=== PATIENT | female | born 1945 | race Caucasian/White ===

== ENCOUNTER 2017-11-13 11:33 | Observation (INO) | payer MEDICARE, BC ==
--- NOTE | 2017-11-13 13:01 | EDM.PDOC ---
ED HPI GENERAL MEDICAL PROBLEM - General Stated Complaint: FROM [facility] HEART PROBLEMS Time Seen by Provider: 11/13/17 12:53 Source of Information: Reports: Patient, Family, RN Notes Reviewed History Limitations: Reports: No Limitations - History of Present Illness INITIAL COMMENTS - FREE TEXT/NARRATIVE: 72-year-old female presents to the emergency department day complaint of shortness of breath, she states she's been short of breath for about a week has progressively gotten worse she does produce green sputum, she is a DNR/DNI comfort care only does have an extensive cardiac history I did discuss the case with her daughter informed me that cardiology had nothing more to offer other than comfort care. She has been having chest pain on and off for the last week as well as fever did receive a flu shot this year - Related Data Allergies Allergy/AdvReac Type Severity Reaction Status Date / Time No Known Allergies Allergy Verified 11/13/17 13:19 Home Meds: Home Meds Aspirin 81 mg PO DAILY 11/13/17 [History] Carbidopa/Levodopa [Carbidopa-Levodopa 10-100] 1 tab PO BID 11/13/17 [History] Cholecalciferol (Vitamin D3) [Vitamin D3] 2,000 unit PO DAILY 11/13/17 [History] Clopidogrel [Plavix] 75 mg PO DAILY 11/13/17 [History] Famotidine 20 mg PO BID 11/13/17 [History] Glucagon,Human Recombinant [Glucagon Emergency Kit] 1 mg IJ ASDIRECTED PRN 11/13 [History] Insulin Aspart [NovoLOG] 5 unit SQ BID 11/13/17 [History] Insulin Glarg,Human.Rec.Analog [Lantus] 10 unit SUBCUT BEDTIME 11/13/17 [History ] Insulin Glarg,Human.Rec.Analog [Lantus] 15 unit SUBCUT DAILY 11/13/17 [History] Isosorbide Mononitrate [Imdur] 60 mg PO DAILY 11/13/17 [History] Levothyroxine [Sythroid] 100 mcg PO DAILY 11/13/17 [History] Lisinopril 20 mg PO BID 11/13/17 [History] Metoprolol Succinate [Toprol XL 100mg] 100 mg PO DAILY 11/13/17 [History] Metoprolol Succinate [Toprol XL 50mg] 50 mg PO BEDTIME 11/13/17 [History] Nitroglycerin [Nitrostat] 0.4 mg SL ASDIRECTED 11/13/17 [History] Ondansetron HCl [Zofran] 4 mg PO Q8HR PRN 11/13/17 [History] Propylene Glycol/PEG 400/Pf [Systane 0.3-0.4% Eye Drops] 1 each OP TID PRN 11/13 [History] Venlafaxine [Effexor XR] 150 mg PO DAILY 11/13/17 [History] atorvaSTATin [Lipitor] 40 mg PO BEDTIME 11/13/17 [History] Past Medical History Cardiovascular History: Reports: CAD Social & Family History - Tobacco Use Smoking Status *Q: Former Smoker ED ROS GENERAL - Review of Systems Review Of Systems: See Below Constitutional: Reports: Fever HEENT: Reports: No Symptoms Respiratory: Reports: Shortness of Breath, Cough, Sputum Cardiovascular: Reports: Chest Pain, Dyspnea on Exertion GI/Abdominal: Reports: No Symptoms : Reports: No Symptoms Musculoskeletal: Reports: No Symptoms Skin: Reports: No Symptoms ED EXAM, GENERAL - Physical Exam Exam: See Below Exam Limited By: No Limitations General Appearance: Alert, WD/WN, No Apparent Distress Ears: Normal External Exam, Normal Canal, Hearing Grossly Normal, Normal TMs Nose: Normal Inspection, Normal Mucosa, No Blood Throat/Mouth: Normal Inspection, Normal Lips, Normal Teeth, Normal Gums, Normal Oropharynx, Normal Voice, No Airway Compromise Head: Atraumatic, Normocephalic Neck: Normal Inspection, Supple, Non-Tender, Full Range of Motion Respiratory/Chest: No Respiratory Distress, Lungs Clear, Normal Breath Sounds, No Accessory Muscle Use Cardiovascular: Regular Rate, Rhythm, No Murmur GI/Abdominal: Soft, Non-Tender Course - Vital Signs Last Recorded V/S: Last Vital Signs Temp 96.5 F 11/13/17 12:41 Pulse 79 11/13/17 14:53 Resp 16 11/13/17 14:53 BP 140/62 11/13/17 14:53 Pulse Ox 97 11/13/17 14:53 - Orders/Labs/Meds Orders: Active Orders 24 hr Category Date Time Status RT Aerosol Therapy [RC] ASDIRECTED Care 11/13/17 13:10 Active Chest 1V Frontal [CR] Urgent Exams 01/13/18 12:58 Taken Morphine Med 11/13/17 15:06 Active 15 mg PO Q2H PRN Medication Orders Morphine Sulfate (Morphine) 15 mg PO Q2H PRN PRN Reason: Pain Last Admin: 11/13/17 15:18 Dose: 15 mg Labs: Laboratory Tests 11/13/17 11/13/17 Range/Units 12:58 12:58 WBC 22.3 H (4.5-11.0) K/uL RBC 3.69 (3.30-5.50) M/uL Hgb 12.0 (12.0-15.0) g/dL Hct 34.4 L (36.0-48.0) % MCV 93 (80-98) fL MCH 33 H (27-31) pg MCHC 35 (32-36) % Plt Count 401 H (150-400) K/uL Neut % (Auto) 78 H (36-66) % Lymph % (Auto) 13 L (24-44) % [place] % (Auto) 9 H (2-6) % Eos % (Auto) 0 L (2-4) % Baso % (Auto) 0 (0-1) % Sodium 136 L (140-148) mmol/L Potassium 4.9 (3.6-5.2) mmol/L Chloride 97 L (100-108) mmol/L Carbon Dioxide 24 (21-32) mmol/L Anion Gap 19.9 H (5.0-14.0) mmol/L BUN 30 H (7-18) mg/dL Creatinine 1.3 H (0.6-1.0) mg/dL Est Cr Clr Drug Dosing 27.68 mL/min Estimated GFR (MDRD) 40 L (>60) Glucose 374 H (74-106) mg/dL Calcium 9.3 (8.5-10.1) mg/dL Total Bilirubin 0.7 (0.2-1.0) mg/dL AST 152 H (15-37) U/L ALT 3 L (12-78) U/L Alkaline Phosphatase 79 (46-116) U/L Troponin I 30.345 H* (0.000-0.056) ng/mL Total Protein 6.9 (6.4-8.2) g/dL Albumin 2.7 L (3.4-5.0) g/dL Globulin 4.2 H (2.3-3.5) g/dL Albumin/Globulin Ratio 0.6 L (1.2-2.2) Meds: Medications Generic Name Dose Route Start Last Admin Trade Name Freq PRN Reason Stop Dose Admin Morphine Sulfate 15 mg 11/13/17 15:06 11/13/17 15:18 Morphine PO 15 mg Q2H PRN Administration Pain Discontinued Medications Generic Name Dose Route Start Last Admin Trade Name Freq PRN Reason Stop Dose Admin Albuterol/Ipratropium 3 ml 11/13/17 13:10 11/13/17 13:49 Duoneb 3.0-0.5 Mg/3 Ml NEB 11/13/17 13:11 3 ml ONETIME ONE Administration Guaifenesin 600 mg 11/13/17 15:06 11/13/17 15:18 Mucinex PO 11/13/17 15:07 600 mg ONETIME ONE Administration Morphine Sulfate 2 mg 11/13/17 15:04 Morphine IVPUSH 11/13/17 15:05 ONETIME ONE Departure - Departure Time of Disposition: 15:39 Disposition: Admitted As Inpatient 65 Condition: Poor Clinical Impression: NSTEMI (non-ST elevated myocardial infarction) - Discharge Information Referrals: Andrea Oneil MD [Primary Care Provider] - - My Orders Last 24 Hours: My Active Orders 11/13/17 12:58 Chest 1V Frontal [CR] Urgent 11/13/17 13:10 RT Aerosol Therapy [RC] ASDIRECTED 11/13/17 15:06 Morphine 15 mg PO Q2H PRN - Assessment/Plan Last 24 Hours: My Active Orders 11/13/17 12:58 Chest 1V Frontal [CR] Urgent 11/13/17 13:10 RT Aerosol Therapy [RC] ASDIRECTED 11/13/17 15:06 Morphine 15 mg PO Q2H PRN Plan: Assessment Acuity = acute Site and laterality = non-ST elevation myocardial infarction Etiology = probable coronary artery disease Manifestations = dyspnea Location of injury = Home Lab values = WBC elevated 22.3 consistent leukocytosis creatinine elevated 1.3 consistent with chronic renal failure stage G IIIB glucose elevated 374 consistent with hyperglycemia AST elevated 152 consistent elevated liver enzymes troponin elevated at 30.3 consistent with acute myocardial infarction albumin low at 2.7 consistent hypoalbuminemia EKG has multiple ST depressions consistent with acute ischemia chest x-ray shows bilateral infiltrates official read radiology is pending Plan Called and discussed case with hospitalist transfer controller he agreed to come and evaluate the patient in the emergency department I did have a discussion with her and the family they still want to remain DO NOT RESUSCITATE comfort care only and would like to go to palliative care hospice, there is the plan to admit to the hospital for palliative care with a hospice consult This note was dictated using [employer] voice recognition software please call with any questions on syntax or jemma.
[2017-11-13] MEDS ORDERED: Albuterol/Ipratropium 3.0-0.5 MG/3 ML Neb Soln NEB ONE (13:10)
[2017-11-13] MEDS ORDERED: Morphine 2 MG/ML Syringe IVPUSH ONE (15:04)
[2017-11-13] MEDS ORDERED: guaiFENesin 600 MG Tab.ER PO ONE (15:06)
[2017-11-13] MEDS ORDERED: Morphine 15 MG Tab PO PRN (15:06)
--- NOTE | 2017-11-13 17:10 | PCM.HP ---
H&P History of Present Illness - General Date of Service: 11/13/17 Admit Problem/Dx: Admission Diagnosis/Problem Admission Diagnosis/Problem Palliative care Source of Information: Patient, Family, Provider, RN Notes Reviewed History Limitations: Reports: Altered Mental Status (Dementia) - History of Present Illness Initial Comments - Free Text/Narative: Ms. Hernandez is a 72-year-old woman who is admitted to observation status for symptom management prior to hospice admission. She has a known history of severe end-stage coronary artery disease and has been told that she has no further options for intervention by cardiology. She has not felt well over the past several days with increased shortness of breath and intermittent episodes of chest pain. Likely triggered by viral or bacterial upper respiratory tract infection. She came into the emergency department today for further evaluation, EKG showed no evidence of significant ST segment elevation but her troponin level was markedly elevated at 30. Indicating probable large non-ST segment elevation myocardial infarction. She has requested no further aggressive interventions and would like comfort care only, as well as hospice admission. She has underlying dementia, much of history obtained for the admission was from family, she is unable to provide information concerning review of systems. - Related Data Allergies/Adverse Reactions: Allergies Allergy/AdvReac Type Severity Reaction Status Date / Time No Known Allergies Allergy Verified 11/13/17 13:19 Home Medications: Home Meds Aspirin 81 mg PO DAILY 11/13/17 [History] Carbidopa/Levodopa [Carbidopa-Levodopa 10-100] 1 tab PO BID 11/13/17 [History] Cholecalciferol (Vitamin D3) [Vitamin D3] 2,000 unit PO DAILY 11/13/17 [History] Clopidogrel [Plavix] 75 mg PO DAILY 11/13/17 [History] Famotidine 20 mg PO BID 11/13/17 [History] Glucagon,Human Recombinant [Glucagon Emergency Kit] 1 mg IJ ASDIRECTED PRN 11/13 [History] Insulin Aspart [NovoLOG] 5 unit SQ BID 11/13/17 [History] Insulin Glarg,Human.Rec.Analog [Lantus] 10 unit SUBCUT BEDTIME 11/13/17 [History ] Insulin Glarg,Human.Rec.Analog [Lantus] 15 unit SUBCUT DAILY 11/13/17 [History] Isosorbide Mononitrate [Imdur] 60 mg PO DAILY 11/13/17 [History] Levothyroxine [Sythroid] 100 mcg PO DAILY 11/13/17 [History] Lisinopril 20 mg PO BID 11/13/17 [History] Metoprolol Succinate [Toprol XL 100mg] 100 mg PO DAILY 11/13/17 [History] Metoprolol Succinate [Toprol XL 50mg] 50 mg PO BEDTIME 11/13/17 [History] Nitroglycerin [Nitrostat] 0.4 mg SL ASDIRECTED 11/13/17 [History] Ondansetron HCl [Zofran] 4 mg PO Q8HR PRN 11/13/17 [History] Propylene Glycol/PEG 400/Pf [Systane 0.3-0.4% Eye Drops] 1 each OP TID PRN 11/13 [History] Venlafaxine [Effexor XR] 150 mg PO DAILY 11/13/17 [History] atorvaSTATin [Lipitor] 40 mg PO BEDTIME 11/13/17 [History] Past Medical History HEENT History: Reports: Other (See Below) Other HEENT History: dry eyes Cardiovascular History: Reports: CAD Other Cardiovascular History: carotid stenosis Gastrointestinal History: Reports: GERD, Other (See Below) Other Gastrointestinal History: ulcers [employer] History: Reports: Neurological History: Reports: CVA, Parkinson's, TIA, Other (See Below) Other Neuro History: lewy bodies dementia Psychiatric History: Reports: Depression Endocrine/Metabolic History: Reports: Diabetes, Type I, Hypothyroidism Hematologic History: Reports: Anemia - Past Surgical History Cardiovascular Surgical History: Reports: Other (See Below) Other Cardiovascular Surgeries/Procedures: angiogram GI Surgical History: Reports: EGD Social & Family History - Tobacco Use Smoking Status *Q: Former Smoker - Caffeine Use Caffeine Use: Reports: Coffee - Recreational Drug Use Recreational Drug Use: No H&P Review of Systems - Review of Systems: Review Of Systems: Unable To Obtain General: Reports: ROS unobtainable (Dementia) Exam - Exam Exam: See Below - Vital Signs Vital Signs: Last Vital Signs Temp 96.5 F 11/13/17 12:41 Pulse 79 11/13/17 14:53 Resp 16 11/13/17 14:53 BP 140/62 11/13/17 14:53 Pulse Ox 97 11/13/17 14:53 Weight: 141 lb - Exam Quality Assessment: Supplemental Oxygen General: Alert, Cooperative, Mild Distress HEENT: Conjunctiva Clear, Hearing Intact, Mucosa Moist & [place], Normal Nasal Septum, Posterior Pharynx Clear, Pupils Equal Neck: Supple, Trachea Midline, +2 Carotid Pulse wo Bruit Lungs: Decreased Breath Sounds, Wheezing. No: Crackles, Rales, Rhonchi, Rub, Stridor Cardiovascular: Regular Rate, Regular Rhythm, Normal S1, Normal S2. No: Systolic Murmur, Diastolic Murmur GI/Abdominal Exam: Soft, Non-Tender, No Organomegaly, No Distention Back Exam: Normal Inspection, Full Range of Motion Extremities: Non-Tender, No Pedal Edema Skin: Warm, Dry, Intact Neurological: Cranial Nerves Intact, Strength Equal Bilateral, Normal Speech, Normal Tone, Sensation Intact. No: Focal Deficit Neuro Extensive - Mental Status: Alert, Normal Mood/Affect, Disorientation to Time, Memory Loss-Remote Events, Memory Loss-Recent Events. No: Memory Intact - Patient Data Result Diagrams: 11/13/17 12:58 11/13/17 12:58 *Q Meaningful Use (ADM) - VTE *Q VTE Criteria *Q: VTE Mechanical Contraindications *Q: At Risk for Falls VTE Pharmacological Contraindications *Q: Not Candidate LT Anticoag - VTE Risk Assess *Q Each Risk Factor Represents 1 Point: Acute myocardial infarction Total Score 1 Point Risk Factors: 1 Each Risk Factor Represents 2 Points: Age 60 - 74 Years Total Score 2 Point Risk Factors: 2 Each Risk Factor Represents 3 Points: None Total Score 3 Point Risk Factors: 0 Each Risk Factor Represents 5 Points: None Total Score 5 Point Risk Factors: 0 Venous Thromboembolism Risk Factor Score *Q: 3 - Stroke *Q Stroke Criteria *Q: - AMI *Q AMI Criteria *Q: Problem List Initiated/Reviewed/Updated: Yes Orders Last 24hrs: Active Orders 24 hr Category Date Time Status Resuscitation Status Routine Resus Stat 11/13/17 16:00 Ordered Medication Orders Morphine Sulfate (Morphine) 15 mg PO Q2H PRN PRN Reason: Pain Last Admin: 11/13/17 15:18 Dose: 15 mg Assessment/Plan Comment:: ASSESSMENT AND PLAN PALLIATIVE CARE-patient has end-stage coronary artery disease not amenable to further interventions. She has requested comfort cares only, with hospice admission at the time of discharge. -Morphine as needed for pain and/or dyspnea -Lorazepam as needed for anxiety SEVERE CORONARY ARTERY DISEASE STATUS POST NON-ST SEGMENT ELEVATION MYOCARDIAL INFARCTION-she does not want further interventions for management, comfort cares only -Continue outpatient medical regimen -No further diagnostic tests or other interventions UPPER RESPIRATORY TRACT INFECTION -Manage symptoms for comfort TYPE 1 DIABETES MELLITUS -4 times a day glucometers -Continue outpatient dosing of long-acting insulin -Continue usual dose of short acting insulin -Low-dose sliding scale NovoLog with meals PARKINSON'S DISEASE -Continue outpatient medical regimen DEMENTIA MAINTENANCE ISSUES -DVT prophylaxis; not indicated given comfort care status -GI prophylaxis; not indicated -Brennan catheter; not indicated -Nutrition; consistent carb 2 g sodium diet -Nicotine dependence; not required CODE STATUS-DNR/DNI, comfort measures only ADMISSION STATUS-this patient will be admitted to observation status, expect no more than a one night hospital stay for evaluation and management of problems as outlined above. DISPOSITION-anticipate discharge to home after the hospital stay. PRIMARY CARE PROVIDER-patient receives primary care in [facility] but is unsure of the name of her primary care provider
[2017-11-13] MEDS ORDERED: Albuterol 0.083% 2.5 MG/3 ML Neb Soln NEB PRN (17:35)
[2017-11-13] MEDS ORDERED: Acetaminophen 325 MG Tab PO PRN (17:35)
[2017-11-13] MEDS ORDERED: Polyethylene Glycol 3350 Powder 17 GM Packet PO PRN (17:35)
[2017-11-13] MEDS ORDERED: oxyCODONE 5 MG Tab PO PRN (17:35)
[2017-11-13] MEDS ORDERED: Magnesium Hydroxide 400 MG/5 ML Susp 30 ML Cup PO PRN (17:35)
[2017-11-13] MEDS ORDERED: Nitroglycerin 0.4 MG Tab.SL **OWN MED SL PRN (17:35)
[2017-11-13] MEDS ORDERED: PROPYLENE GLYCOL OP PRN (17:35)
[2017-11-13] MEDS ORDERED: Zolpidem 5 MG Tab PO PRN (17:35)
[2017-11-13] MEDS ORDERED: 50% Dextrose in Water 50 ML Syringe IV PRN (17:35)
[2017-11-13] MEDS ORDERED: Ondansetron 4 MG Tab.DIS PO PRN (17:35)
[2017-11-13] MEDS ORDERED: Glucose Gel 15 GM in 37.5 GM Tube PO PRN (17:35)
[2017-11-13] MEDS ORDERED: PEG OP PRN (17:35)
[2017-11-13] MEDS ORDERED: LORazepam ORAL Concentrate 1MG/0.5ML U/D PO PRN (17:35)
[2017-11-13] MEDS ORDERED: Docusate Sodium 100 MG Cap PO PRN (17:35)
[2017-11-13] MEDS: Morphine 10 MG/0.5 ML Oral Syringe SL PRN (18:05)
[2017-11-13] MEDS: Albuterol/Ipratropium 3.0-0.5 MG/3 ML Neb Soln NEB SCH ×2 (19:20→23:51)
[2017-11-13] MEDS: INSULIN ASPART 100 UNIT/ML SUBCUT SCH ×3 (19:21→20:54)
[2017-11-13] MEDS: CARBIDOPA PO SCH (20:49)
[2017-11-13] MEDS: LEVODOPA PO SCH (20:49)
[2017-11-13] MEDS: INSULIN GLARGINE 100 UNIT/ML SUBCUT SCH (20:52)
[2017-11-13] MEDS ORDERED: Metoprolol Succinate 50 MG Tab.ER PO SCH (21:00)
[2017-11-13] MEDS ORDERED: Carbidopa/Levodopa 10-100 MG Tab PO SCH (21:00)
[2017-11-13] MEDS ORDERED: METOPROLOL SUCCINATE 100 MG PO SCH (21:00)
[2017-11-13] MEDS ORDERED: LISINOPRIL 20 MG PO SCH (21:00)
[2017-11-14] MEDS: Albuterol/Ipratropium 3.0-0.5 MG/3 ML Neb Soln NEB SCH ×3 (07:15→19:11)
[2017-11-14] MEDS ORDERED: METOPROLOL SUCCINATE 100 MG PO SCH ×2 (08:50→09:00)
[2017-11-14] MEDS: INSULIN ASPART 100 UNIT/ML SUBCUT SCH ×5 (08:52→21:25)
[2017-11-14] MEDS ORDERED: Pantoprazole 40 MG Tab.CR PO SCH (09:00)
[2017-11-14] MEDS ORDERED: Levothyroxine 100 MCG Tab PO SCH (09:00)
[2017-11-14] MEDS ORDERED: Venlafaxine 75 MG Cap.ER PO SCH (09:00)
[2017-11-14] MEDS ORDERED: INSULIN GLARGINE 100 UNIT/ML SUBCUT SCH (09:00)
[2017-11-14] MEDS ORDERED: Isosorbide Mononitrate 30 MG Tab.ER PO SCH (09:00)
[2017-11-14] MEDS ORDERED: Aspirin 81 MG Tab.Chew PO SCH (09:00)
[2017-11-14] MEDS ORDERED: VENLAFAXINE 150 MG PO SCH (09:00)
[2017-11-14] MEDS ORDERED: Clopidogrel 75 MG Tab**POM PO SCH (09:00)
[2017-11-14] MEDS ORDERED: Aspirin 81 MG Tab.EC**POM PO SCH (09:00)
[2017-11-14] MEDS ORDERED: ISOSORBIDE MONONITRATE 60 MG PO SCH (09:00)
--- NOTE | 2017-11-14 10:13 | PCM.PN ---
- General Info Date of Service: 11/14/17 Subjective Update: Ms. Hernandez has been fairly stable since admission last night. Denies current symptoms of chest pain or pressure, but does get short of breath with fairly minimal exertion. She denies significant pain and reports that she is comfortable. - Review of Systems General: Reports: Weakness. Denies: Fever, Chills Pulmonary: Reports: Shortness of Breath, Cough, Wheezing. Denies: Pleuritic Chest Pain, Sputum, Hemoptysis Cardiovascular: Reports: Dyspnea on Exertion. Denies: Chest Pain, Palpitations , Orthopnea, PND, Edema, Lightheadedness Gastrointestinal: Reports: No Symptoms - Patient Data Vitals - Most Recent: Last Vital Signs Temp 98.3 F 11/14/17 07:09 Pulse 81 11/14/17 07:09 Resp 18 11/14/17 07:09 BP 103/57 L 11/14/17 08:50 Pulse Ox 97 11/14/17 07:09 Weight - Most Recent: 139 lb 8.842 oz I&O - Last 24 Hours: Intake & Output 11/13/17 11/14/17 11/14/17 22:59 06:59 14:59 Intake Total 500 120 Output Total 250 150 Balance 250 -30 Med Orders - Current: Current Medications Acetaminophen (Tylenol) 650 mg PO Q4H PRN PRN Reason: Pain (Mild 1-3)/fever Albuterol (Proventil Neb Soln) 2.5 mg NEB Q4H PRN PRN Reason: Dyspnea Last Admin: 11/14/17 05:50 Dose: 2.5 mg Albuterol/Ipratropium (Duoneb 3.0-0.5 Mg/3 Ml) 3 ml NEB Q6H [facility] Last Admin: 11/14/17 07:15 Dose: 3 ml Aspirin (Halfprin) 81 mg PO DAILY [facility] Carbidopa/Levodopa (Sinemet 10-100 Mg) 1 tab PO BID [facility] Last Admin: 11/13/17 20:49 Dose: 1 tab Clopidogrel Bisulfate (Plavix) 75 mg PO DAILY [facility] Dextrose (Glutose 15) 15 gm PO ONETIME PRN PRN Reason: Hypoglycemia Dextrose/Water (Dextrose 50% In Water) 50 ml IV ONETIME PRN PRN Reason: Hypoglycemia Docusate Sodium (Colace) 100 mg PO BID PRN PRN Reason: Constipation Insulin Aspart (Novolog) 5 unit SUBCUT BID [facility] Last Admin: 11/13/17 20:54 Dose: 5 units Insulin Aspart (Novolog) 0 unit SUBCUT QIDACANDBED [facility] PRN Reason: Protocol Last Admin: 11/14/17 08:52 Dose: 1 units Levothyroxine Sodium (Synthroid) 100 mcg PO ACBREAKFAST [facility] Lisinopril (Prinivil) 20 mg PO BID [facility] Lorazepam (Ativan Oral Concentrate 1mg/0.5 Ml U/D) 0.5 mg PO Q2H PRN PRN Reason: Anxiety Magnesium Hydroxide (Milk Of Magnesia) 30 ml PO Q12H PRN PRN Reason: Constipation Morphine Sulfate (Morphine 10 Mg/0.5 Ml Oral Syringe) 0 mg SL Q1H PRN PRN Reason: Pain Last Admin: 11/13/17 18:05 Dose: 5 mg Nitroglycerin (Nitrostat) 0.4 mg SL Q5M PRN PRN Reason: CHEST PAIN Insulin Glargine 100unit/Ml 3ml Pen * * Own Med 0 each SUBCUT BEDTIME [facility] Last Admin: 11/13/17 20:52 Dose: 10 each Insulin Glargine (100unit/Ml 3ml Pen) 0 each SUBCUT DAILY [facility] Metoprolol Succinate Er 100mg Tabs Own Med 0 each PO DAILY [facility] Propylene Glycol/Peg 400/Pf [Systane 0.3 -0.4%] Ophth 0 each OP TID PRN PRN Reason: Dry Eyes Isosorbide Mononitrate 60 Mg Tab.ErPom 0 each PO DAILY [facility] Metoprolol Succinate Er 100mg TabsPom* * 0 each PO BEDTIME [facility] Venlafaxine 150 Mg (Cap.ErPom) 0 each PO DAILY [facility] Ondansetron HCl (Zofran Odt) 4 mg PO Q4H PRN PRN Reason: Nausea Oxycodone HCl (Oxycodone) 5 mg PO Q4H PRN PRN Reason: Pain (moderate 4-6) Last Admin: 11/13/17 21:10 Dose: 5 mg Pantoprazole Sodium (Protonix) 40 mg PO ACBREAKFAST [facility] Polyethylene Glycol (Miralax) 17 gm PO DAILY PRN PRN Reason: Constipation Zolpidem Tartrate (Ambien) 5 mg PO BEDTIME PRN PRN Reason: Sleep Discontinued Medications Albuterol/Ipratropium (Duoneb 3.0-0.5 Mg/3 Ml) 3 ml NEB ONETIME ONE Stop: 11/13/17 13:11 Last Admin: 11/13/17 13:49 Dose: 3 ml Albuterol/Ipratropium (Duoneb 3.0-0.5 Mg/3 Ml) 3 ml NEB Q6H [facility] Last Admin: 11/13/17 23:51 Dose: 3 ml Aspirin (Aspirin) 81 mg PO DAILY [facility] Carbidopa/Levodopa (Sinemet 10-100 Mg) 1 tab PO BID [facility] Guaifenesin (Mucinex) 600 mg PO ONETIME ONE Stop: 11/13/17 15:07 Last Admin: 11/13/17 15:18 Dose: 600 mg Isosorbide Mononitrate (Imdur) 60 mg PO DAILY [facility] Levothyroxine Sodium (Synthroid) 100 mcg PO DAILY [facility] Metoprolol Succinate (Toprol Xl) 50 mg PO BEDTIME [facility] Morphine Sulfate (Morphine) 2 mg IVPUSH ONETIME ONE Stop: 11/13/17 15:05 Last Admin: 11/13/17 23:38 Dose: Not Given Morphine Sulfate (Morphine) 15 mg PO Q2H PRN PRN Reason: Pain Last Admin: 11/13/17 15:18 Dose: 15 mg Metoprolol Succinate Er 100mg Tabs Own Med 0.5 each PO BEDTIME [facility] Last Admin: 11/13/17 20:47 Dose: 0.5 each Venlafaxine HCl (Effexor Xr) 150 mg PO DAILY [facility] - Exam Quality Assessment: DVT Prophylaxis General: Alert, Cooperative, No Acute Distress Lungs: Clear to Auscultation, Normal Respiratory Effort Cardiovascular: Regular Rate, Regular Rhythm, Murmurs GI/Abdominal Exam: Soft, Non-Tender, No Organomegaly, No Distention Extremities: Non-Tender, No Pedal Edema Skin: Warm, Dry, Intact - Problem List Review Problem List Initiated/Reviewed/Updated: Yes - My Orders Last 24 Hours: My Active Orders 11/13/17 16:00 Resuscitation Status Routine 11/13/17 17:35 Patient Status [ADT] Routine Ambulate [RC] QID Blood Glucose Check, Bedside [RC] QIDACANDBED Diabetes Education [RC] .PRN Height and Weight [RC] 0500 Intake and Output [RC] Q12H Notify Provider Vital Signs [RC] ASDIRECTED Notify Provider [RC] PRN Oxygen Therapy [RC] PRN RT Aerosol Therapy [RC] ASDIRECTED Up to Chair [RC] QID VTE/DVT Education [RC] .PRN Vital Signs [RC] Q4H Consult to Hospice [CONS] Routine Acetaminophen [Tylenol] 650 mg PO Q4H PRN Albuterol [Proventil Neb Soln] 2.5 mg NEB Q4H PRN Dextrose 50% in Water 50 ml IV ONETIME PRN Dextrose [Glutose 15] 15 gm PO ONETIME PRN Docusate Sodium [Colace] 100 mg PO BID PRN Insulin Aspart [NovoLOG] See Protocol SUBCUT QIDACANDBED LORazepam [Ativan ORAL Concentrate 1MG/0.5 ML U/D] 0.5 mg PO Q2H PRN Magnesium Hydroxide [Milk of Magnesia] 30 ml PO Q12H PRN Morphine [Morphine 10 MG/0.5 ML Oral Syringe] See Dose Instructions SL Q1H PRN Ondansetron [Zofran ODT] 4 mg PO Q4H PRN Polyethylene Glycol 3350 [MiraLAX] 17 gm PO DAILY PRN Zolpidem [Ambien] 5 mg PO BEDTIME PRN oxyCODONE 5 mg PO Q4H PRN [facility] Mechanical Contraindications [AST] Per Unit Routine [facility] Pharmacological Contraindications [AST] Per Unit Routine 11/13/17 21:00 Carbidopa/Levodopa [Sinemet 10-100 mg] 1 tab PO BID 11/13/17 Lunch 2 Gram Sodium Diet [DIET] Consistent Carbohydrate Diet [DIET] 11/14/17 07:00 Albuterol/Ipratropium [DuoNeb 3.0-0.5 MG/3 ML] 3 ml NEB Q6H 11/14/17 08:50 Non-Formulary Medication [NF Drug] 0 each PO BEDTIME 11/14/17 09:00 Aspirin [Halfprin] 81 mg PO DAILY Non-Formulary Medication [NF Drug] 0 each PO DAILY Non-Formulary Medication [NF Drug] 0 each PO DAILY Pantoprazole [ProTONIX] 40 mg PO ACBREAKFAST 11/14/17 11:30 GLUCOSE POC LAB TO COLLECT [POC] QIDACANDBED 11/14/17 16:30 GLUCOSE POC LAB TO COLLECT [POC] QIDACANDBED 11/14/17 21:00 GLUCOSE POC LAB TO COLLECT [POC] QIDACANDBED 11/15/17 07:30 GLUCOSE POC LAB TO COLLECT [POC] QIDACANDBED Levothyroxine [Synthroid] 100 mcg PO ACBREAKFAST 11/15/17 11:30 GLUCOSE POC LAB TO COLLECT [POC] QIDACANDBED 11/15/17 16:30 GLUCOSE POC LAB TO COLLECT [POC] QIDACANDBED 11/15/17 21:00 GLUCOSE POC LAB TO COLLECT [POC] QIDACANDBED 11/16/17 07:30 GLUCOSE POC LAB TO COLLECT [POC] QIDACANDBED 11/16/17 11:30 GLUCOSE POC LAB TO COLLECT [POC] QIDACANDBED 11/16/17 16:30 GLUCOSE POC LAB TO COLLECT [POC] QIDACANDBED - Plan Plan:: ASSESSMENT AND PLAN PALLIATIVE CARE-patient has end-stage coronary artery disease not amenable to further interventions. She has requested comfort cares only, with hospice admission at the time of discharge. She reports that she has been comfortable since admission with no significant symptoms of chest pain or pressure. -Morphine as needed for pain and/or dyspnea -Lorazepam as needed for anxiety SEVERE CORONARY ARTERY DISEASE STATUS POST NON-ST SEGMENT ELEVATION MYOCARDIAL INFARCTION-she does not want further interventions for management, comfort cares only -Continue outpatient medical regimen -No further diagnostic tests or other interventions UPPER RESPIRATORY TRACT INFECTION -Manage symptoms for comfort TYPE 1 DIABETES MELLITUS -4 times a day glucometers -Continue outpatient dosing of long-acting insulin -Continue usual dose of short acting insulin -Low-dose sliding scale NovoLog with meals PARKINSON'S DISEASE -Continue outpatient medical regimen DEMENTIA MAINTENANCE ISSUES -DVT prophylaxis; not indicated given comfort care status -GI prophylaxis; not indicated -Brennan catheter; not indicated -Nutrition; consistent carb 2 g sodium diet -Nicotine dependence; not required CODE STATUS-DNR/DNI, comfort measures only ADMISSION STATUS-this patient will be admitted to observation status, expect no more than a one night hospital stay for evaluation and management of problems as outlined above. DISPOSITION-anticipate discharge to home after the hospital stay. PRIMARY CARE PROVIDER-patient receives primary care in [facility] but is unsure of the name of her primary care provider
[2017-11-14] MEDS: CARBIDOPA PO SCH ×2 (10:54→21:26)
[2017-11-14] MEDS: LEVODOPA PO SCH ×2 (10:54→21:26)
[2017-11-14] MEDS: Morphine 10 MG/0.5 ML Oral Syringe SL PRN ×4 (11:11→19:11)
[2017-11-14] MEDS ORDERED: Scopolamine 1.5 MG Transdermal Patch TOP PRN (14:49)
[2017-11-14] MEDS: LORazepam ORAL Concentrate 1MG/0.5ML U/D PO PRN (15:02)
[2017-11-14] MEDS ORDERED: Insulin Aspart 100 Units/ML 3 ML Pen SUBCUT ONE (21:03)
[2017-11-14] MEDS: INSULIN GLARGINE 100 UNIT/ML SUBCUT SCH (21:25)
[2017-11-15] MEDS: Albuterol/Ipratropium 3.0-0.5 MG/3 ML Neb Soln NEB SCH (00:56)
[2017-11-15] MEDS: Morphine 10 MG/0.5 ML Oral Syringe SL PRN (01:04)
[2017-11-15] MEDS: LORazepam ORAL Concentrate 1MG/0.5ML U/D PO PRN (01:13)
[2017-11-15] MEDS ORDERED: Levothyroxine 100 MCG Tab**POM PO SCH (07:30)
[2017-11-15] MEDS ORDERED: SCOPALAMINE PATCH CHECK TOP SCH (09:00)
--- NOTE | 2017-11-15 09:54 | CR ---
Portable chest The patient has had a prior sternotomy. The heart and vascular structures are within normal limits. T here is patchy infiltrate of the left lower lobe. There are no pleural effusions. There is mild hyper inflation. Impression: 1. Patchy left basilar infiltrate. Follow-up is recommended to confirm resolution.
--- NOTE | 2017-11-15 16:45 | PCM.DCSUM1 ---
Discharge Summary - Hospital Course Brief History: Ms. Hernandez was a 72-year-old woman with end-stage coronary artery disease not amenable to further intervention. She was admitted to observation status, to facilitate admission to hospice, with a large non-ST segment elevation myocardial infarction. - Discharge Data Discharge Date: 11/15/17 Discharge Disposition: 20 Preliminary Cause of *Q: Cardiac Arrest Condition: - Patient Summary/Data Consults: Consultations 11/13/17 17:35 Consult to Hospice [CONS] Routine Comment: Physician Instructions: Reason for Consult: Acute MT, end-stage cardiac disease Hospital Course: Ms. Hernandez was a 72-year-old woman with a known history of severe end-stage coronary artery disease. She had been told by cardiology that she was not a candidate for further evaluation or intervention. She developed symptoms of shortness of breath and weakness. On evaluation in emergency department was found to have a troponin of 30, there was no significant ST segment elevation identified on EKG. She was felt to have a non-ST segment elevation myocardial infarction. Patient requested comfort cares only and did not want further interventions or evaluation. She requested comfort cares only with medication as needed for management of symptoms. She was admitted to the hospital on observation status, to facilitate hospice admission, with plain discharged home with family later on the day of her . She was treated with morphine and lorazepam as needed for comfort, per her request no further laboratory studies or diagnostic tests were performed. She was seen and evaluated by hospice staff for initial assessment with plan for hospice admission on the day of . Early in the morning of November 15 she , no further attempts were made at resuscitation per her previously expressed wishes. - Discharge Plan Home Medications: Home Meds Aspirin 81 mg PO DAILY 11/13/17 [History] Carbidopa/Levodopa [Carbidopa-Levodopa 10-100] 1 tab PO BID 11/13/17 [History] Cholecalciferol (Vitamin D3) [Vitamin D3] 2,000 unit PO DAILY 11/13/17 [History] Clopidogrel [Plavix] 75 mg PO DAILY 11/13/17 [History] Famotidine 20 mg PO BID 11/13/17 [History] Glucagon,Human Recombinant [Glucagon Emergency Kit] 1 mg IJ ASDIRECTED PRN 11/13 [History] Insulin Aspart [NovoLOG] 5 unit SQ BID 11/13/17 [History] Insulin Glarg,Human.Rec.Analog [Lantus] 10 unit SUBCUT BEDTIME 11/13/17 [History ] Insulin Glarg,Human.Rec.Analog [Lantus] 15 unit SUBCUT DAILY 11/13/17 [History] Isosorbide Mononitrate [Imdur] 60 mg PO DAILY 11/13/17 [History] Levothyroxine [Sythroid] 100 mcg PO DAILY 11/13/17 [History] Lisinopril 20 mg PO BID 11/13/17 [History] Metoprolol Succinate [Toprol XL 100mg] 100 mg PO DAILY 11/13/17 [History] Metoprolol Succinate [Toprol XL 50mg] 50 mg PO BEDTIME 11/13/17 [History] Nitroglycerin [Nitrostat] 0.4 mg SL ASDIRECTED 11/13/17 [History] Ondansetron HCl [Zofran] 4 mg PO Q8HR PRN 11/13/17 [History] Propylene Glycol/PEG 400/Pf [Systane 0.3-0.4% Eye Drops] 1 each OP TID PRN 11/13 [History] Venlafaxine [Effexor XR] 150 mg PO DAILY 11/13/17 [History] atorvaSTATin [Lipitor] 40 mg PO BEDTIME 11/13/17 [History] Referrals: Andrea Oneil MD [Primary Care Provider] - - Patient Data Vitals - Most Recent: Last Vital Signs Temp 95.5 F 11/15/17 00:56 Pulse 44 L 11/14/17 23:56 Resp 24 H 11/14/17 23:56 BP 98/51 L 11/14/17 23:00 Pulse Ox 92 L 11/15/17 00:11 Weight - Most Recent: 139 lb 8.842 oz Med Orders - Current: Current Medications Discontinued Medications Acetaminophen (Tylenol) 650 mg PO Q4H PRN PRN Reason: Pain (Mild 1-3)/fever Albuterol (Proventil Neb Soln) 2.5 mg NEB Q4H PRN PRN Reason: Dyspnea Last Admin: 11/14/17 05:50 Dose: 2.5 mg Albuterol/Ipratropium (Duoneb 3.0-0.5 Mg/3 Ml) 3 ml NEB ONETIME ONE Stop: 11/13/17 13:11 Last Admin: 11/13/17 13:49 Dose: 3 ml Albuterol/Ipratropium (Duoneb 3.0-0.5 Mg/3 Ml) 3 ml NEB Q6H [facility] Last Admin: 11/13/17 23:51 Dose: 3 ml Albuterol/Ipratropium (Duoneb 3.0-0.5 Mg/3 Ml) 3 ml NEB Q6H [facility] Last Admin: 11/15/17 00:56 Dose: 3 ml Aspirin (Aspirin) 81 mg PO DAILY [facility] Aspirin (Halfprin) 81 mg PO DAILY [facility] Last Admin: 11/14/17 10:45 Dose: 81 mg Carbidopa/Levodopa (Sinemet 10-100 Mg) 1 tab PO BID [facility] Carbidopa/Levodopa (Sinemet 10-100 Mg) 1 tab PO BID [facility] Last Admin: 11/14/17 21:26 Dose: 1 tab Clopidogrel Bisulfate (Plavix) 75 mg PO DAILY [facility] Last Admin: 11/14/17 10:52 Dose: 75 mg Dextrose (Glutose 15) 15 gm PO ONETIME PRN PRN Reason: Hypoglycemia Dextrose/Water (Dextrose 50% In Water) 50 ml IV ONETIME PRN PRN Reason: Hypoglycemia Docusate Sodium (Colace) 100 mg PO BID PRN PRN Reason: Constipation Guaifenesin (Mucinex) 600 mg PO ONETIME ONE Stop: 11/13/17 15:07 Last Admin: 11/13/17 15:18 Dose: 600 mg Insulin Aspart (Novolog) 5 unit SUBCUT BID [facility] Last Admin: 11/14/17 10:51 Dose: Not Given Insulin Aspart (Novolog) 0 unit SUBCUT QIDACANDBED [facility] PRN Reason: Protocol Last Admin: 11/14/17 21:25 Dose: Not Given Insulin Aspart (Novolog) 8 unit SUBCUT ONETIME ONE Stop: 11/14/17 21:04 Last Admin: 11/14/17 21:27 Dose: 8 units Isosorbide Mononitrate (Imdur) 60 mg PO DAILY [facility] Levothyroxine Sodium (Synthroid) 100 mcg PO DAILY [facility] Levothyroxine Sodium (Synthroid) 100 mcg PO ACBREAKFAST [facility] Lisinopril (Prinivil) 20 mg PO BID [facility] Last Admin: 11/14/17 10:53 Dose: Not Given Lorazepam (Ativan Oral Concentrate 1mg/0.5 Ml U/D) 0.5 mg PO Q2H PRN PRN Reason: Anxiety Last Admin: 11/14/17 13:39 Dose: 0.5 mg Lorazepam (Ativan Oral Concentrate 1mg/0.5 Ml U/D) 0.5 mg PO Q1H PRN PRN Reason: Anxiety Last Admin: 11/15/17 01:13 Dose: 0.5 mg Magnesium Hydroxide (Milk Of Magnesia) 30 ml PO Q12H PRN PRN Reason: Constipation Metoprolol Succinate (Toprol Xl) 50 mg PO BEDTIME [facility] Morphine Sulfate (Morphine) 2 mg IVPUSH ONETIME ONE Stop: 11/13/17 15:05 Last Admin: 11/13/17 23:38 Dose: Not Given Morphine Sulfate (Morphine) 15 mg PO Q2H PRN PRN Reason: Pain Last Admin: 11/13/17 15:18 Dose: 15 mg Morphine Sulfate (Morphine 10 Mg/0.5 Ml Oral Syringe) 0 mg SL Q1H PRN PRN Reason: Pain Last Admin: 11/15/17 01:04 Dose: 10 mg Nitroglycerin (Nitrostat) 0.4 mg SL Q5M PRN PRN Reason: CHEST PAIN Last Admin: 11/14/17 13:34 Dose: 0.4 mg Insulin Glargine 100unit/Ml 3ml Pen * * Own Med 0 each SUBCUT BEDTIME [facility] Last Admin: 11/14/17 21:25 Dose: 1 each Insulin Glargine (100unit/Ml 3ml Pen) 0 each SUBCUT DAILY [facility] Last Admin: 11/14/17 10:47 Dose: 15 each Metoprolol Succinate Er 100mg Tabs Own Med 0 each PO DAILY [facility] Last Admin: 11/14/17 10:49 Dose: 1 each Propylene Glycol/Peg 400/Pf [Systane 0.3 -0.4%] Ophth 0 each OP TID PRN PRN Reason: Dry Eyes Metoprolol Succinate Er 100mg Tabs Own Med 0.5 each PO BEDTIME [facility] Last Admin: 11/13/17 20:47 Dose: 0.5 each Isosorbide Mononitrate 60 Mg Tab.ErPom 0 each PO DAILY [facility] Last Admin: 11/14/17 10:49 Dose: 1 each Metoprolol Succinate Er 100mg TabsPom* * 0 each PO BEDTIME [facility] Venlafaxine 150 Mg (Cap.ErPom) 0 each PO DAILY [facility] Last Admin: 11/14/17 10:51 Dose: 1 each Scopalamine Patch (Check) 0 each TOP DAILY [facility] Ondansetron HCl (Zofran Odt) 4 mg PO Q4H PRN PRN Reason: Nausea Last Admin: 11/14/17 13:19 Dose: 4 mg Oxycodone HCl (Oxycodone) 5 mg PO Q4H PRN PRN Reason: Pain (moderate 4-6) Last Admin: 11/13/17 21:10 Dose: 5 mg Pantoprazole Sodium (Protonix) 40 mg PO ACBREAKFAST [facility] Last Admin: 11/14/17 11:07 Dose: 40 mg Polyethylene Glycol (Miralax) 17 gm PO DAILY PRN PRN Reason: Constipation Scopolamine (Transderm-Scop) 1.5 mg TOP Q72H PRN PRN Reason: Nausea Last Admin: 11/14/17 15:02 Dose: 1.5 mg Venlafaxine HCl (Effexor Xr) 150 mg PO DAILY [facility] Zolpidem Tartrate (Ambien) 5 mg PO BEDTIME PRN PRN Reason: Sleep *Q Meaningful Use (DIS) - VTE *Q VTE Criteria *Q: VTE Mechanical Contraindications *Q: At Risk for Falls VTE Pharmacological Contraindications *Q: Not Candidate LT Anticoag - Stroke *Q Stroke Criteria *Q: - AMI *Q AMI Criteria *Q:
== END 2017-11-15 01:20 | disposition expired ==
LOC: JP.ED 11:33 → JP.MS 15:55
PROVIDERS: ADMIT Hospitalist; ATTEND Hospitalist
DX: I46.9 Cardiac arrest, cause unspecified (principal); I21.4 Non-ST elevation (NSTEMI) myocardial infarction; K21.9 Gastro-esophageal reflux disease without esophagitis; E10.9 Type 1 diabetes mellitus without complications; E03.9 Hypothyroidism, unspecified; G45.9 Transient cerebral ischemic attack, unspecified; G20 Parkinson's disease; Z87.891 Personal history of nicotine dependence; Z79.82 Long term (current) use of aspirin; Z79.4 Long term (current) use of insulin
CPT/HCPCS: 36415; 71045; 80053; 82962; 84484; 85025; 87804; 94640; 99285; A9270; G0378; J7620; 99217; 99220; 99224